=== PATIENT | male | born 1995 | race Hispanic/Latino ===

== ENCOUNTER 2018-06-04 21:00 | Emergency (ER) | payer OTHER ==
[2018-06-04 21:23] VITALS: BP 125/79; PULSE 68; RESP 18; TEMP 98.5; O2SAT 100
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
== END 2018-06-04 23:09 | disposition home or self-care (01) ==
LOC: H.ER 21:00
DX: M54.6 Pain in thoracic spine (principal); V43.62XA Car passenger injured in collision with other type car in traffic accident, initial encounter